=== PATIENT | male | born 1945 | race Caucasian/White ===

== ENCOUNTER 2018-10-18 07:31 | Emergency (ER) | payer MEDICARE ==
[2018-10-18] MEDS ORDERED: IPRATROPIUM/ALBUTEROL 0.5-2.5 MG/3 ML AMPUL NEB ONE (09:42)
[2018-10-18 09:57] LABS: APPEARANCE,URINE SLIGHTLY-CLOUDY; BILIRUBIN,URINE NEGATIVE (NEGATIVE); COLOR,URINE YELLOW; GLUCOSE, URINE NEGATIVE (NEGATIVE); KETONES,URINE NEGATIVE (NEGATIVE); LEUKOCYTE ESTERASE,URINE NEGATIVE (NEGATIVE); NITRITE,URINE NEGATIVE (NEGATIVE); PROTEIN,URINE NEGATIVE (NEGATIVE); URINE SPECIFIC GRAVITY 1.015
--- NOTE | 2018-10-18 10:15 | ER Document Report ---
ED General - General Chief Complaint: Abdominal Pain Stated Complaint: ABDOMEN SWELLING Time Seen by Provider: 10/18/18 09:06 Notes: Patient is a 73-year-old male that presents to the emergency department for chief complaint of right-sided abdominal pain and cough. Patient reports he is been having cough for the past week, he is gone to urgent care, and was prescribed Tessalon Perles, doxycycline, prednisone, and Tamiflu, he has taken most these medications are almost completed. He had associated runny nose, but yesterday he started he was coughing rather hard, and then felt a strain in his right side of his abdomen, and has been having an aching sensation there since then, he currently rates it as a 3 out of 10. He denies any numbness, tingling or weakness, denies any urinary complaints such as dysuria or hematuria. Denies any fevers, chills, night sweats. He states he does smoke, but denies history of diagnosis of COPD. Currently does not have a primary care. Past Medical History: Hypertension, COPD Past Surgical History: Denies recent or pertinent surgical history Social History: Admits to smoking cigarettes, denies alcohol or drug use. Family History: Reviewed and noncontributory for presenting illness Allergies: Reviewed, see documented allergy list. REVIEW OF SYSTEMS: Other than noted above, the 12 point review of systems was reviewed with the patient and were negative, all pertinent findings are included in the HPI. PHYSICAL EXAMINATION: Vital signs reviewed, nursing noted reviewed. GENERAL: Elderly male, no acute distress. HEAD: Atraumatic, normocephalic. EYES: Eyes appear normal, extraocular movements intact, sclera anicteric, conjunctiva are normal. ENT: nares patent, oropharynx clear without exudates. Moist mucous membranes. NECK: Normal range of motion, supple without lymphadenopathy LUNGS: Bilateral expiratory wheezing noted throughout all lung arango. No acute respiratory distress however. HEART: Regular rate and rhythm without murmurs ABDOMEN: Soft, there is mild tenderness to palpation over the right flank, but not CVA tenderness, no palpable hernia with Valsalva or coughing, normoactive bowel sounds. No rebound, guarding, or rigidity. No masses appreciated. EXTREMITIES: Nontender, good range of motion, no pitting or edema. NEUROLOGICAL: No focal neurological deficits. Moves all extremities spontaneously Motor and sensory grossly intact on exam. PSYCH: Normal mood, normal affect. SKIN: Warm, Dry, normal turgor, no rashes or lesions noted on exposed skin TRAVEL OUTSIDE OF THE [place] IN LAST 30 DAYS: No - Related Data Allergies/Adverse Reactions: lisinopril Allergy (Verified 10/18/18 07:36) Past Medical History - Social History Smoking Status: Current Every Day Smoker Chew tobacco use (# tins/day): No Frequency of alcohol use: weekly Drug Abuse: None Family History: Reviewed & Not Pertinent Patient has suicidal ideation: No Patient has homicidal ideation: No - Past Medical History Cardiac Medical History: Reports: Hx Hypertension Denies: Hx Coronary Artery Disease Neurological Medical History: Denies: Hx Cerebrovascular Accident Endocrine Medical History: Denies: Hx Diabetes Mellitus Type 1, Hx Diabetes Mellitus Type 2 Renal/ Medical History: Denies: Hx Peritoneal Dialysis GI Medical History: Reports: Hx Ulcer - Had a bleeding ulcer many years ago but no recent ulcer symptoms - Immunizations Hx Diphtheria, Pertussis, Tetanus Vaccination: Yes Physical Exam - Vital signs Vitals: Temp Pulse Resp BP Pulse Ox 98.0 F 70 18 180/84 H 95 10/18/18 07:42 10/18/18 07:42 10/18/18 07:42 10/18/18 07:42 10/18/18 07:42 Course - Re-evaluation Re-evalutation: Patient seen and examined vital signs reviewed. Patient was evaluated and treated as appropriate for the patient's presenting symptoms and complaint, with consideration of any critical or life threatening conditions that may be associated with their obtained history and exam as noted above. Patient was treated with DuoNeb breathing treatments The patient was re-evaluated and was improved, still had a wheeze, but was in no respiratory distress, pulse ox was within normal limits Evaluation was most consistent with acute exacerbation of COPD, cough, abdominal wall pain, will prescribe the patient an antitussive medication, to help relieve the cough, that is worsening the patient's right-sided pain, he is already prescribed steroid, advised to finish this, he is also advised to follow-up with the primary care, he is given 3 different primary care numbers to follow-up with. Urine testing was negative. Plan of care was discussed with the patient at this point, after careful consideration I feel that that patient can be discharged from the emergency department, the patient was educated treatments and reasons to return to the emergency department based on their presumed diagnosis as noted above, they were advised to followup with a primary care physician in 2-3 days. Patient was agreeable to plan of care. *Note is created using voice recognition software and may contain spelling, syntax or grammatical errors. Laboratory 10/18/18 09:15 Urine Color YELLOW Urine Appearance SLIGHTLY-CLOUDY Urine pH 8.0 Ur Specific [place] 1.015 Urine Protein NEGATIVE Urine Glucose (UA) NEGATIVE Urine Ketones NEGATIVE Urine Blood NEGATIVE Urine Nitrite NEGATIVE Urine Bilirubin NEGATIVE Urine Urobilinogen 4.0 H Ur Leukocyte Esterase NEGATIVE Urine WBC (Auto) 1 Urine Bacteria (Auto) TRACE Squamous Epi Cells Auto 2 Urine Mucus (Auto) RARE Urine Ascorbic Acid NEGATIVE - Vital Signs Vital signs: Temp Pulse Resp BP Pulse Ox 98.0 F 70 18 180/84 H 95 10/18/18 07:42 10/18/18 07:42 10/18/18 07:42 10/18/18 07:42 10/18/18 07:42 - Laboratory Laboratory results interpreted by me: 10/18/18 09:15 Urine Urobilinogen 4.0 H Discharge - Discharge Clinical Impression: Right lateral abdominal pain, Bronchospasm Condition: Stable Disposition: HOME, SELF-CARE Instructions: Cough Suppressant & Expectorant Medications, Bronchospasm ([facility]) Additional Instructions: Please take all medications as prescribed, I think you can discontinue taking the Tamiflu that was previously prescribed for flu, and also discontinue taking the Tessalon Perles, complete the course of steroids that have been prescribed, and please follow-up with primary care physician as you may need inhaled steroids to help with your wheezing, and you should be seen to be diagnosed formally with emphysema if it is present. Finish the course of doxycycline the antibiotic that you are prescribed as well, I will advise you to use the inhaler that was prescribed to you, 2 puffs 4 times daily for the next 5 days, then every 4 hours as needed after that. Prescriptions: Hydrocodone Bit/Homatrop Me-Br [Hydrocodone-Homatropine Syrup] 5 ml PO Q6H PRN #100 ml PRN Reason: Cough Referrals: [facility] [Provider Group] - Follow up in 3-5 days [facility] [Provider Group] - Follow up in 3-5 days ISREAL STROUD MD [COMMUNITY BASED STAFF] - Follow up in 3-5 days
[2018-10-18 10:48] VITALS: BP 188/97
== END 2018-10-18 10:51 | disposition home or self-care (01) ==
LOC: EDBD → ER 07:31
DX: J98.01 Acute bronchospasm (principal); I10 Essential (primary) hypertension; R10.9 Unspecified abdominal pain; R19.00 Intra-abdominal and pelvic swelling, mass and lump, unspecified site; R05 Cough; Z79.899 Other long term (current) drug therapy; R09.89 Other specified symptoms and signs involving the circulatory and respiratory systems; J44.9 Chronic obstructive pulmonary disease, unspecified; F17.210 Nicotine dependence, cigarettes, uncomplicated
CPT/HCPCS: 94640; 99284; 81001; A9270; J7620

== ENCOUNTER 2018-12-01 07:29 | Observation (INO) | payer MEDICARE ==
[2018-12-01] MEDS ORDERED: IPRATROPIUM/ALBUTEROL 0.5-2.5 MG/3 ML AMPUL NEB ONE (07:44)
--- NOTE | 2018-12-01 07:46 | ER Document Report ---
ED Medical Screen (RME) - General Stated Complaint: CHEST PAIN Time Seen by Provider: 12/01/18 07:37 Notes: Patient is a 73-year-old male who presents to the emergency department with a chief complaint of chest pain. He states that pain is on the left side of his chest. He states that it does not radiate. Describes his pain as a stabbing pain. His pain started between 4 and 5 AM this morning. He was brought in by ambulance and the ambulance gave him albuterol for his wheezing, one sublingual nitroglycerin, aspirin 324 mg, and did a twelve-lead EKG. States he does have some shortness of breath. Exam: Expiratory wheezes noted throughout all lung arango I have greeted and performed a rapid initial assessment of this patient. A comprehensive ED assessment and evaluation of the patient, analysis of test results and completion of medical decision making process will be conducted by an additional ED providers. TRAVEL OUTSIDE OF THE [place] IN LAST 30 DAYS: No - Related Data Allergies/Adverse Reactions: lisinopril Allergy (Verified 10/18/18 07:36) Past Medical History - Past Medical History Cardiac Medical History: Reports: Hx Hypertension Denies: Hx Coronary Artery Disease Neurological Medical History: Denies: Hx Cerebrovascular Accident Endocrine Medical History: Denies: Hx Diabetes Mellitus Type 1, Hx Diabetes Mellitus Type 2 Renal/ Medical History: Denies: Hx Peritoneal Dialysis GI Medical History: Reports: Hx Ulcer - Had a bleeding ulcer many years ago but no recent ulcer symptoms - Immunizations Hx Diphtheria, Pertussis, Tetanus Vaccination: Yes
[2018-12-01 07:51] LABS: ABSOLUTE EOSINOPHILS # (AUTO) 0.1 10^3/uL (0.0-0.6); ABSOLUTE MONOCYTES (AUTO) 0.4 10^3/uL (0.1-1.4); ABSOLUTE NEUT (AUTO) 0.8 10^3/uL (1.7-8.2); BASOPHILS % (AUTO) 0.8 % (0-2); EOSINOPHILS % (AUTO) 2.5 % (0-6); HEMATOCRIT 40.5 % (37.9-51.0); HEMOGLOBIN 13.6 g/dL (13.5-17.0); LYMPHOCYTES % (AUTO) 60.6 % (13-45); MEAN CORPUSCULAR HEMOGLOBIN 33.6 pg (27.0-33.4); MEAN CORPUSCULAR HGB CONC 33.5 g/dL (32.0-36.0); MEAN CORPUSCULAR VOLUME 100 fl (80-97); MONOCYTES % (AUTO) 11.7 % (3-13); PLATELET COUNT 213 10^3/uL (150-450); RED BLOOD COUNT 4.04 10^6/uL (4.35-5.55); RED CELL DISTRIBUTION WIDTH 14.1 % (11.5-14.0); SEGMENTED NEUTROPHILS % (AUTO) 24.4 % (42-78); TOTAL CELLS COUNTED % (AUTO) 100 %; WHITE BLOOD COUNT 3.2 10^3/uL (4.0-10.5)
[2018-12-01 08:09] LABS: ALANINE AMINOTRANSFERASE 19 U/L (21-72); ALBUMIN 3.9 g/dL (3.5-5.0); ALKALINE PHOSPHATASE 47 U/L (38-126); ANION GAP 11 (5-19); ASPARTATE AMINO TRANSFERASE 31 U/L (17-59); BILIRUBIN,DIRECT 0.2 mg/dL (0.0-0.4); BILIRUBIN,TOTAL 1.3 mg/dL (0.2-1.3); BLOOD UREA NITROGEN 10 mg/dL (7-20); CALCIUM 9.1 mg/dL (8.4-10.2); CARBON DIOXIDE 26 mmol/L (22-30); CHLORIDE 105 mmol/L (98-107); CREATINE KINASE 103 U/L (55-170); GLUCOSE 90 mg/dL (75-110); POTASSIUM 4.3 mmol/L (3.6-5.0); SODIUM 142.3 mmol/L (137-145); TOTAL PROTEIN 7.1 g/dL (6.3-8.2)
[2018-12-01 08:21] LABS: CREATINE KINASE MB 1.43 ng/mL (<4.55); TROPONIN I < 0.012 ng/mL
--- NOTE | 2018-12-01 08:26 | RADIOLOGY REPORT (SQ) ---
EXAM DESCRIPTION: CHEST SINGLE VIEW COMPLETED DATE/TIME: 12/01/2018 8:08 am REASON FOR STUDY: cp COMPARISON: 12/26/2014. EXAM PARAMETERS: NUMBER OF VIEWS: One view. TECHNIQUE: Single frontal radiographic view of the chest acquired. RADIATION DOSE: NA LIMITATIONS: None. FINDINGS: LUNGS AND PLEURA: Suboptimal inspiration. No opacities, masses or pneumothorax. No pleura l effusion. MEDIASTINUM AND HILAR STRUCTURES: No masses. Contour normal. HEART AND VASCULAR STRUCTURES: Heart normal in size. Normal vasculature. BONES: No acute findings. HARDWARE: None in the chest. OTHER: No other significant finding. IMPRESSION: NO ACUTE RADIOGRAPHIC FINDING IN THE CHEST. TECHNICAL DOCUMENTATION: JOB ID: [id number] [employer]- All Rights Reserved Reading location - IP/workstation name: [email or web address]
--- NOTE | 2018-12-01 08:44 | EKG REPORT ---
SEVERITY:- NORMAL ECG - SINUS RHYTHM : Confirmed by: Antonio Camara MD 01-Dec-2018 08:39:05
[2018-12-01] MEDS ORDERED: AMLODIPINE BESYLATE 5 MG TABLET PO SCH (11:30)
[2018-12-01] MEDS ORDERED: ALPRAZOLAM 0.25 MG TABLET PO PRN (11:36)
[2018-12-01] MEDS ORDERED: ACETAMINOPHEN 325 MG TABLET PO PRN (11:37)
[2018-12-01] MEDS ORDERED: IBUPROFEN 800 MG TABLET PO PRN (11:37)
--- NOTE | 2018-12-01 11:50 | PDOC H&P ---
History of Present Illness Patient complains of: CHEST PAIN History of Present Illness: CUBA LAO is a 73 year old male with a PMH of HTN (not medicated) and 55 pack year smoking history. Patient states he woke up this morning with nonradiating left-sided chest pain. He states he has been experiencing intermittent, nonradiating left-sided chest pain for approximately 1 month. He states it is not affiliated with exertion or eating. Can happen anytime of the day. The patient states he woke up with the worst amount of pain/pressure he has had in the last month, which is what prompted him to come to the emergency department. Patient was mildly hypertensive upon arrival to the emergency department, BP148/ 92. All other vital signs are WNL. EKG shows NSR, no evidence of infarction or ischemia. CXR relatively benign, no cardiopulmonary pathology. Laboratory studies revealed leukopenia (WBC 3.2), all other laboratory studies relatively normal, including chemistry and cardiac enzymes. Upon exam, the patient is resting comfortably in bed on room air. He endorses left-sided chest pressure, nonradiating. He did not shortness of breath, dizziness, back pain, nausea or vomiting. Lungs are clear to auscultation. S1-S2. There is no evidence of peripheral edema. Plan to admit to hospitalist service for chest pain. Past Medical History Cardiac Medical History: Reports: Hypertension Denies: Coronary Artery Disease Endocrine Medical History: Denies: Diabetes Mellitus Type 1, Diabetes Mellitus Type 2 Past Surgical History Past Surgical History: Reports: None Social History Information Source: Patient Lives with: Family Smoking Status: Current Every Day Smoker Number of Years Smokin Frequency of Alcohol Use: Rare Hx Recreational Drug Use: No Drugs: None Hx Prescription Drug Abuse: No - Advance Directive Resuscitation Status: Full Code Family History Family History: Reviewed & Not Pertinent Parental Family History Reviewed: Yes Children Family History Reviewed: Yes Sibling(s) Family History Reviewed.: Yes Medication/Allergy Allergies/Adverse Reactions: lisinopril Allergy (Verified 10/18/18 07:36) Review of Systems Constitutional: PRESENT: headache(s) - INTERMITTENT Eyes: PRESENT: visual disturbances - HAS NOT HAD VISION CHECKED IN "A WHILE" DOES NOT WEAR CORRECTIVE EYEWEAR Cardiovascular: PRESENT: chest pain. ABSENT: dyspnea on exertion, edema, orthropnea Gastrointestinal: ABSENT: abdominal pain, bloating Genitourinary: ABSENT: dysuria Musculoskeletal: ABSENT: deformity, muscle weakness Integumentary: ABSENT: diaphoresis Neurological: ABSENT: weakness Psychiatric: ABSENT: anxiety, depression Endocrine: ABSENT: cold intolerance, heat intolerance Physical Exam Vital Signs: Temp Pulse Resp BP Pulse Ox 97.7 F 18 159/94 H 88 L 12/01/18 08:05 12/01/18 10:00 12/01/18 10:00 12/01/18 10:00 Intake & Output 11/30/18 12/01/18 12/02/18 06:59 06:59 06:59 Weight 75.5 kg General appearance: PRESENT: no acute distress, well-developed, well-nourished Head exam: PRESENT: atraumatic, normocephalic Eye exam: PRESENT: conjunctiva pink, EOMI, PERRLA. ABSENT: scleral icterus Ear exam: PRESENT: normal external ear exam Mouth exam: PRESENT: moist, tongue midline Neck exam: ABSENT: carotid bruit, JVD, lymphadenopathy, thyromegaly Respiratory exam: PRESENT: clear to auscultation scottie, symmetrical, unlabored. ABSENT: rales, rhonchi, wheezes Cardiovascular exam: PRESENT: RRR. ABSENT: diastolic murmur, rubs, systolic murmur Pulses: PRESENT: normal radial pulses, normal dorsalis pedis pul Vascular exam: PRESENT: normal capillary refill GI/Abdominal exam: PRESENT: normal bowel sounds, soft. ABSENT: distended, guarding, mass, organolmegaly, rebound, tenderness Rectal exam: PRESENT: deferred Extremities exam: PRESENT: full ROM. ABSENT: calf tenderness, clubbing, pedal edema Neurological exam: PRESENT: alert, awake, oriented to person, oriented to place, oriented to time, oriented to situation Psychiatric exam: PRESENT: appropriate affect, normal mood Skin exam: PRESENT: dry, intact, warm. ABSENT: cyanosis, rash Results Laboratory Results: 12/01/18 07:40 12/01/18 07:40 12/01/18 12/01/18 07:40 07:40 WBC 3.2 L RBC 4.04 L Hgb 13.6 Hct 40.5 MCV 100 H MCH 33.6 H MCHC 33.5 RDW 14.1 H Plt Count 213 Seg Neutrophils % 24.4 L Lymphocytes % 60.6 H Monocytes % 11.7 Eosinophils % 2.5 Basophils % 0.8 Absolute Neutrophils 0.8 L Absolute Lymphocytes 2.0 Absolute Monocytes 0.4 Absolute Eosinophils 0.1 Absolute Basophils 0.0 Sodium 142.3 Potassium 4.3 Chloride 105 Carbon Dioxide 26 Anion Gap 11 BUN 10 Creatinine 0.87 Est GFR ( Amer) > 60 Est GFR (Non-Af Amer) > 60 Glucose 90 Calcium 9.1 Total Bilirubin 1.3 AST 31 ALT 19 L Alkaline Phosphatase 47 Total Protein 7.1 Albumin 3.9 12/01/18 12/01/18 07:40 07:40 Creatine Kinase 103 CK-MB (CK-2) 1.43 Troponin I < 0.012 Impressions: Chest X-Ray 12/01/18 07:30 IMPRESSION: NO ACUTE RADIOGRAPHIC FINDING IN THE CHEST. Status: Imported from PACS Assessment and Plan - Diagnosis (1) Chest pain Qualifiers: Chest pain type: unspecified Qualified Code(s): R07.9 - Chest pain, unspecified Is this a current diagnosis for this admission?: Yes Plan: Intermittent chest pain, not associated with activity and not relieved by rest Unclear etiology at this time EKG shows NSR no infarction or ischemia CXR benign Cardiac enzymes negative, trend q6h x 3 Initiate amlodipine for HTN - SBP 150s Nitro SL q5min x 3 for chest pain scale -5 Treat atypical causes of chest pain: PRN Tylenol and Motrin for muscular pain, PRN Xanax for anxiety, scheduled Pepcid for acid reflux (2) Tobacco abuse Is this a current diagnosis for this admission?: Yes Plan: 55 pack year smoking history will offer nicotine patch - Time Time Spent with patient: 15-24 minutes Medications reviewed and adjusted accordingly: Yes Anticipated discharge: Home Within: within 24 hours - Inpatient Certification Based on my medical assessment, after consideration of the patient's comorbidities, presenting symptoms, or acuity I expect that the services needed warrant INPATIENT care.: Yes I certify that my determination is in accordance with my understanding of Medicare's requirements for reasonable and necessary INPATIENT services [42 CFR 412.3e].: Yes Medical Necessity: Need For Continuous Telemetry Monitoring, Risk of Complicat ion if Not Cared For in Hospital
--- NOTE | 2018-12-01 12:02 | ER Document Report ---
ED Cardiac - General Chief Complaint: Chest Pain Stated Complaint: CHEST PAIN Time Seen by Provider: 12/01/18 07:37 Mode of Arrival: Ambulatory Information source: Patient Notes: Patient is a 73-year-old male presenting to the emergency department with chief complaint of chest pain. Patient reports he has been having intermittent left- sided chest pain for the last 30 days. He states this morning he woke up with the worst pain he has ever felt. He describes it as a squeezing type of pain. It is nonradiating and he did not have any nausea or vomiting. He does report shortness of breath with this. Patient does have a history of hypertension for which she is not taking medications and he also has a history of COPD. Patient reports he has been's 1 pack a day smoker for the last 65 years. Patient states that he does not have a primary care provider and does not take any prescription medications. He does state that he was seen here in this department 3 weeks ago for a cold. Patient currently denies any chest pain. TRAVEL OUTSIDE OF THE [place] IN LAST 30 DAYS: No - Related Data Allergies/Adverse Reactions: lisinopril Allergy (Verified 10/18/18 07:36) Past Medical History - General Information source: Patient - Social History Smoking Status: Current Every Day Smoker Chew tobacco use (# tins/day): No Frequency of alcohol use: None Drug Abuse: None Lives with: Family Family History: Reviewed & Not Pertinent Patient has suicidal ideation: No Patient has homicidal ideation: No - Past Medical History Cardiac Medical History: Reports: Hx Hypertension Denies: Hx Coronary Artery Disease Neurological Medical History: Denies: Hx Cerebrovascular Accident Endocrine Medical History: Denies: Hx Diabetes Mellitus Type 1, Hx Diabetes Tita itus Type 2 Renal/ Medical History: Denies: Hx Peritoneal Dialysis GI Medical History: Reports: Hx Ulcer - Had a bleeding ulcer many years ago but no recent ulcer symptoms Past Surgical History: Reports: None - Immunizations Hx Diphtheria, Pertussis, Tetanus Vaccination: Yes Review of Systems - Review of Systems Constitutional: No symptoms reported EENT: No symptoms reported Cardiovascular: Chest pain. denies: Palpitations, Heart racing Respiratory: Short of breath Gastrointestinal: No symptoms reported. denies: Nausea, Vomiting Genitourinary: No symptoms reported Male Genitourinary: No symptoms reported Musculoskeletal: No symptoms reported Skin: No symptoms reported Hematologic/Lymphatic: No symptoms reported Neurological/Psychological: No symptoms reported Physical Exam - Vital signs Vitals: BP Pulse Ox 148/92 H 95 12/01/18 07:32 12/01/18 07:32 - Notes Notes: PHYSICAL EXAMINATION: GENERAL: Well-appearing, well-nourished and in no acute distress. HEAD: Atraumatic, normocephalic. EYES: Pupils equal round and reactive to light, extraocular movements intact, sclera anicteric, conjunctiva are normal. ENT: Nares patent, oropharynx clear without exudates. Moist mucous membranes. NECK: Normal range of motion, supple without lymphadenopathy LUNGS: Breath sounds clear to auscultation bilaterally and equal. No wheezes rales or rhonchi. HEART: Regular rate and rhythm without murmurs ABDOMEN: Soft, nontender, nondistended abdomen. No guarding, no rebound. No masses appreciated. Musculoskeletal: Normal range of motion, no pitting or edema. No cyanosis. Reproducible chest pain to the left chest wall with palpation. NEUROLOGICAL: Cranial nerves grossly intact. Normal speech, normal gait. Normal sensory, motor exams PSYCH: Normal mood, normal affect. SKIN: Warm, Dry, normal turgor, no rashes or lesions noted. Course - Re-evaluation Re-evalutation: EKG shows a sinus rhythm, rate of 84, QTc 464, normal axis and no ST segment elevations or depressions, this EKG was reviewed by me. Chest x-ray is negative. CBC, CMP and initial troponin are negative. Due to patient's history is events surrounding his chest pain will consult hospitalist for admission. Patient and family are agreeable to this. - Vital Signs Vital signs: Temp Pulse Resp BP Pulse Ox 97.7 F 18 159/94 H 88 L 12/01/18 08:05 12/01/18 10:00 12/01/18 10:00 12/01/18 10:00 - Laboratory Result Diagrams: 12/01/18 07:40 12/01/18 07:40 Laboratory results interpreted by me: 12/01/18 12/01/18 07:40 07:40 WBC 3.2 L RBC 4.04 L MCV 100 H MCH 33.6 H RDW 14.1 H Seg Neutrophils % 24.4 L Lymphocytes % 60.6 H Absolute Neutrophils 0.8 L ALT 19 L Discharge - Discharge Clinical Impression: Chest pain Qualifiers: Chest pain type: unspecified Qualified Code(s): R07.9 - Chest pain, unspecified Condition: Stable Disposition: ADMITTED INPATIENT Admitting Provider: Fox (Hospitalist) Unit Admitted: Telemetry
[2018-12-01 12:07] LABS: CREATINE KINASE MB 1.43 ng/mL (<4.55); TROPONIN I < 0.012 ng/mL
[2018-12-01] MEDS: FAMOTIDINE 20 MG TABLET PO SCH (12:10)
[2018-12-01] MEDS ORDERED: METOPROLOL TARTRATE PF/INJ 5 MG/5 ML SDV IV PRN (13:53)
[2018-12-01] MEDS ORDERED: HYDRALAZINE HCL INJ/PF 20 MG/1 ML SDV IV PRN (13:53)
[2018-12-01] MEDS ORDERED: AMLODIPINE BESYLATE 5 MG TABLET PO ONE (13:57)
--- NOTE | 2018-12-01 21:59 | EKG REPORT ---
SEVERITY:- NORMAL ECG - SINUS RHYTHM : Confirmed by: Antonio Camara MD 01-Dec-2018 21:58:53
[2018-12-02 05:37] LABS: HEMATOCRIT 38.6 % (37.9-51.0); HEMOGLOBIN 12.9 g/dL (13.5-17.0); MEAN CORPUSCULAR HEMOGLOBIN 33.4 pg (27.0-33.4); MEAN CORPUSCULAR HGB CONC 33.5 g/dL (32.0-36.0); MEAN CORPUSCULAR VOLUME 100 fl (80-97); PLATELET COUNT 166 10^3/uL (150-450); RED BLOOD COUNT 3.87 10^6/uL (4.35-5.55)
[2018-12-02 05:59] LABS: ALANINE AMINOTRANSFERASE 16 U/L (21-72); ALBUMIN 3.5 g/dL (3.5-5.0); ALKALINE PHOSPHATASE 53 U/L (38-126); ANION GAP 8 (5-19); ASPARTATE AMINO TRANSFERASE 26 U/L (17-59); BILIRUBIN,DIRECT 0.3 mg/dL (0.0-0.4); BILIRUBIN,TOTAL 1.3 mg/dL (0.2-1.3); BLOOD UREA NITROGEN 10 mg/dL (7-20); CALCIUM 9.1 mg/dL (8.4-10.2); CARBON DIOXIDE 28 mmol/L (22-30); CHLORIDE 104 mmol/L (98-107); GLUCOSE 88 mg/dL (75-110); PHOSPHORUS 3.1 mg/dL (2.5-4.5); POTASSIUM 3.7 mmol/L (3.6-5.0); SODIUM 140.1 mmol/L (137-145); TOTAL PROTEIN 6.4 g/dL (6.3-8.2)
[2018-12-02] MEDS ORDERED: AMLODIPINE BESYLATE 5 MG TABLET PO SCH (10:00)
[2018-12-02] MEDS ORDERED: ASPIRIN 81 MG TABLET, ENT COATED PO SCH (10:00)
[2018-12-02] MEDS ORDERED: NICOTINE 21 MG/24 HR PATCH.TD24 TD SCH (10:00)
[2018-12-02] MEDS: FAMOTIDINE 20 MG TABLET PO SCH (10:17)
[2018-12-02] MEDS ORDERED: LOSARTAN POTASSIUM 25 MG TABLET PO SCH (13:30)
[2018-12-02] MEDS: NITROGLYCERIN 0.4 MG/TAB 25 TAB/BOTTLE SL PRN ×2 (13:32→13:43)
--- NOTE | 2018-12-02 15:38 | RADIOLOGY REPORT (SQ) ---
EXAM DESCRIPTION: CT CHEST WITHOUT COMPLETED DATE/TIME: 12/02/2018 3:23 pm REASON FOR STUDY: L CHEST WALL PAIN R07.9 CHEST PAIN, UNSPECIFIED COMPARISON: None. TECHNIQUE: CT scan performed of the chest without intravenous contrast. Images reviewed with lung, soft tissue and bone windows. Reconstructed coronal and sagittal MPR images reviewed. All images st ored on PACS. All CT scanners at this facility use dose modulation, iterative reconstruction, and/or weight based d osing when appropriate to reduce radiation dose to as low as reasonably achievable (ALARA). [facility]: Dose Right [facility]: CareDose [facility]: Dose Right [facility]: Teradose 4D [facility]: [employer] RADIATION DOSE: CT Rad equipment meets quality standard of care and radiation dose reduction techniq ues were employed. CTDIvol: 7.4 mGy. DLP: 263 mGy-cm. mGy. LIMITATIONS: No technical limitations. FINDINGS: LUNGS AND PLEURA: Chronic interstitial scarring. No masses, infiltrates, or pneumothorax. No pleural effusions or pleural calcifications. HILAR AND MEDIASTINAL STRUCTURES: No identified masses or abnormal nodes. Calcified lymph nodes. No obvious aneurysm. HEART AND VASCULAR STRUCTURES: No aneurysm. No pericardial effusion. UPPER ABDOMEN: No significant findings. Punctate calcified granulomas in the spleen. Limited exam. THYROID AND OTHER SOFT TISSUES: No masses. No adenopathy. BONES: No significant finding. HARDWARE: None in the chest. OTHER: No other significant findings. IMPRESSION: CHRONIC INTERSTITIAL SCARRING. OTHERWISE NO ACUTE OR SIGNIFICANT FINDING ON NON-CONTRAS GINI CHEST CT. TECHNICAL DOCUMENTATION: JOB ID: [id number] Quality ID # [id number]: Final reports with documentation of one or more dose reduction techniques (e.g., Au tomated exposure control, adjustment of the mA and/or kV according to patient size, use of iterative reconstruction technique) 2010 [employer]- All Rights Reserved Reading location - IP/workstation name: [email or web address]
[2018-12-02 18:22] VITALS: BP 165/88
[2018-12-02] MEDS ORDERED: DILTIAZEM HCL 120 MG CAP.SR.24H PO SCH (22:00)
[2018-12-03] MEDS ORDERED: ISOSORBIDE MONONITRATE 30 MG TAB.ER.24H PO SCH (10:00)
--- NOTE | 2018-12-04 11:04 | PDOC DISCHARGE SUMMARY ---
General - Admit/Disc Date/PCP Admission Date/Primary Care Provider: 12/01/18 11:46 Discharge Date: 12/02/18 - Discharge Diagnosis (1) Chest pain Is this a current diagnosis for this admission?: Yes (2) Tobacco abuse Is this a current diagnosis for this admission?: Yes - Additional Information Resuscitation Status: Full Code Discharge Activity: Activity As Tolerated Prescriptions: Amlodipine Besylate [Norvasc 5 mg Tablet] 10 mg PO DAILY #60 tablet Diltiazem HCl [Cardizem Cd 120 mg Capsule] 120 mg PO QHS #30 cap.sr.24h Isosorbide Mononitrate [Imdur 30 mg Tablet.er] 30 mg PO DAILY #30 tab.er.24h Losartan Potassium [Cozaar 25 mg Tablet] 25 mg PO DAILY #30 tablet Nitroglycerin [Nitrostat 0.4 mg (1/150 Gr) Tabs 25/Bottle] 1 tab SL Q5MP PRN #1 bottle PRN Reason: Home Medications: Amlodipine Besylate [Norvasc 5 mg Tablet] 10 mg PO DAILY #60 tablet 12/02/18 Diltiazem HCl [Cardizem Cd 120 mg Capsule] 120 mg PO QHS #30 cap.sr.24h 12/02/18 Isosorbide Mononitrate [Imdur 30 mg Tablet.er] 30 mg PO DAILY #30 tab.er.24h 12/02/18 Losartan Potassium [Cozaar 25 mg Tablet] 25 mg PO DAILY #30 tablet 12/02/18 Nitroglycerin [Nitrostat 0.4 mg (1/150 Gr) Tabs 25/Bottle] 1 tab SL Q5MP PRN #1 bottle 12/02/18 History of Present Illness History of Present Illness: CUBA LAO is a 73 year old male with a PMH of HTN (not medicated) and 55 pack year smoking history. Patient states he woke up this morning with nonradiating left-sided chest pain. He states he has been experiencing intermittent, nonradiating left-sided chest pain for approximately 1 month. He states it is not affiliated with exertion or eating. Can happen anytime of the day. The patient states he woke up with the worst amount of pain/pressure he has had in the last month, which is what prompted him to come to the emergency department. Patient was mildly hypertensive upon arrival to the emergency department, BP148/92. All other vital signs are WNL. EKG shows NSR, no evidence of infarction or ischemia. CXR relatively benign, no cardiopulmonary pathology. Laboratory studies revealed leukopenia (WBC 3.2), all other laboratory studies relatively normal, including chemistry and cardiac enzymes. Upon exam, the patient is resting comfortably in bed on room air. He endorses left-sided chest pressure, nonradiating. He did not shortness of breath, dizziness, back pain, nausea or vomiting. Lungs are clear to auscultation. S1-S2. There is no evidence of peripheral edema. Plan to admit to hospitalist service for chest pain. Hospital Course Hospital Course: CUBA LAO is a 73 year old male with a PMH of HTN (not medicated) and 55 pack year smoking history. He presented to the hospital for L sided chest pain. EKG showed NSR. Laboratory studies were benign. CXR showed chronic obstructive lung disease pattern. His pain was treated with IV morphine by the ED staff. The patient was a long time smoker and admits he has not seen a doctor in quite some time. Due to his symptomology and lifestyle risk factors, the patient was admitted to the hospital. Serial cardiac enzymes were negative. No changes noted on follow up EKG the next morning. His BP was consistently elevated (150-160), so PO amlodipine was started. The patient endorsed recurrence of his chest pain. CT chest was preformed and it only revealed chronic interstitial scarring, no acute findings. For his chest pain, the patient was offered SL nitroglycerin tablets. He stated he was chest pain free after receiving 2 tablets. The patient's case was discussed with school boat driver, Dr. Carrington. He recommended starting the patient on IMDUR for suspected cardiac chest pain. Cardizem was added to the regimen at the suggestion of Dr. Carrington for better blood pressure control, in addition to amlodipine. The patient was discharged home with instructions to follow up with Dr. Carrington. Additionally, he was advised to stop smoking and begin taking a baby aspirin. Physical Exam Vital Signs: Temp Pulse Resp BP Pulse Ox 98.0 F 81 17 165/88 H 97 12/02/18 18:20 12/02/18 18:20 12/02/18 18:20 12/02/18 18:20 12/02/18 18:20 Intake & Output 12/03/18 12/04/18 12/05/18 06:59 06:59 06:59 Intake Total 570 Balance 570 Results Laboratory Results: 12/02/18 04:32 12/02/18 04:32 12/01/18 12/01/18 12/01/18 07:40 07:40 11:20 Creatine Kinase 103 CK-MB (CK-2) 1.43 1.43 Troponin I < 0.012 < 0.012 12/01/18 12/01/18 12/01/18 13:35 13:35 19:35 Creatine Kinase 108 100 CK-MB (CK-2) Troponin I < 0.012 12/01/18 19:35 Creatine Kinase CK-MB (CK-2) Troponin I < 0.012 Impressions: Chest X-Ray 12/01/18 07:30 IMPRESSION: NO ACUTE RADIOGRAPHIC FINDING IN THE CHEST. Chest CT 12/02/18 13:15 IMPRESSION: CHRONIC INTERSTITIAL SCARRING. OTHERWISE NO ACUTE OR SIGNIFICANT FINDING ON NON-CONTRASTED CHEST CT. Status: Imported from PACS Qualifiers - * PATIENT BEING DISCHARGED WITH ANY OF THE FOLLOWING DIAGNOSIS: No Acute Heart Failure Is this a Heart Failure Patient?: No Plan Discharge Plan: follow up with dr. carrington for monitoring of new anti-htn regimen. Time Spent: Less than 30 Minutes
== END 2018-12-02 18:43 | disposition home or self-care (01) ==
LOC: ER 07:29 → EH 11:46 → 5 14:30
PROVIDERS: ADMIT Internal Medicine; ATTEND Internal Medicine
DX: R07.9 Chest pain, unspecified (principal); I10 Essential (primary) hypertension; F17.200 Nicotine dependence, unspecified, uncomplicated; Z88.8 Allergy status to other drugs, medicaments and biological substances; Z79.899 Other long term (current) drug therapy
CPT/HCPCS: 93005 ×2; 99285; 36415 ×2; 82553; 82550; 83735; 84100; 85025; 85027; 80053 ×2; 84484; 71045; 71250; 93010; G0378 ×3; A9270 ×7; J7620

== ENCOUNTER 2020-06-18 11:25 | Emergency (ER) | payer MEDICARE ==
--- NOTE | 2020-06-18 12:04 | ER Document Report ---
ED Medical Screen (RME) - General Chief Complaint: Foot Pain Stated Complaint: RIGHT FOOT PAIN,SWELLING Time Seen by Provider: 06/18/20 11:52 TRAVEL OUTSIDE OF THE [place] IN LAST 30 DAYS: No - HPI Notes: Patient is a 76-year-old male with a history of hypertension who presents with right foot swelling and pain that began a week ago. Patient's describes most pain to his right medial ankle. He denies any injury or fall. He denies any calf pain or swelling. He has no history of DVTs or PE. - Related Data Allergies/Adverse Reactions: No Known Allergies Allergy (Unverified 06/18/20 11:48) Past Medical History - Social History Chew tobacco use (# tins/day): No Frequency of alcohol use: Social Drug Abuse: None - Past Medical History Cardiac Medical History: Reports: Hx Hypertension Denies: Hx Coronary Artery Disease Neurological Medical History: Denies: Hx Cerebrovascular Accident Endocrine Medical History: Denies: Hx Diabetes Mellitus Type 1, Hx Diabetes Mellitus Type 2 Renal/ Medical History: Denies: Hx Peritoneal Dialysis GI Medical History: Reports: Hx Ulcer - Had a bleeding ulcer many years ago but no recent ulcer symptoms - Immunizations Hx Diphtheria, Pertussis, Tetanus Vaccination: Yes Physical Exam - Vital signs Vitals: Temp Pulse Resp BP Pulse Ox 98.1 F 91 18 174/97 H 97 06/18/20 11:44 06/18/20 11:44 06/18/20 11:44 06/18/20 11:44 06/18/20 11:44 - Cardiovascular Pulses: Normal: Posterior tibial, Dorsalis pedis - Extremities Ankle: Tender, Edema Course - Re-evaluation Re-evalutation: I have greeted and performed a rapid initial assessment of this patient. A comprehensive ED assessment and evaluation of the patient, analysis of test results and completion of medical decision making process will be conducted by an additional ED providers. - Vital Signs Vital signs: Temp Pulse Resp BP Pulse Ox 98.1 F 91 18 174/97 H 97 06/18/20 11:44 06/18/20 11:44 06/18/20 11:44 06/18/20 11:44 06/18/20 11:44
[2020-06-18 12:23] LABS: ABSOLUTE EOSINOPHILS # (AUTO) 0.1 10^3/uL (0.0-0.6); ABSOLUTE MONOCYTES (AUTO) 0.4 10^3/uL (0.1-1.4); ABSOLUTE NEUT (AUTO) 0.9 10^3/uL (1.7-8.2); EOSINOPHILS % (AUTO) 4.2 % (0-6); HEMATOCRIT 41.4 % (37.9-51.0); HEMOGLOBIN 13.9 g/dL (13.5-17.0); LYMPHOCYTES % (AUTO) 41.4 % (13-45); MEAN CORPUSCULAR HEMOGLOBIN 34.6 pg (27.0-33.4); MEAN CORPUSCULAR HGB CONC 33.5 g/dL (32.0-36.0); MEAN CORPUSCULAR VOLUME 103 fl (80-97); MONOCYTES % (AUTO) 17.2 % (3-13); PLATELET COUNT 180 10^3/uL (150-450); RED BLOOD COUNT 4.01 10^6/uL (4.35-5.55); RED CELL DISTRIBUTION WIDTH 13.8 % (11.5-14.0); SEGMENTED NEUTROPHILS % (AUTO) 36.2 % (42-78); TOTAL CELLS COUNTED % (AUTO) 100 %; WHITE BLOOD COUNT 2.4 10^3/uL (4.0-10.5)
[2020-06-18 12:29] LABS: APPEARANCE,URINE CLEAR; BILIRUBIN,URINE NEGATIVE (NEGATIVE); COLOR,URINE YELLOW; GLUCOSE, URINE NEGATIVE (NEGATIVE); KETONES,URINE NEGATIVE (NEGATIVE); LEUKOCYTE ESTERASE,URINE NEGATIVE (NEGATIVE); NITRITE,URINE NEGATIVE (NEGATIVE); PROTEIN,URINE 30 mg/dL (NEGATIVE); URINE SPECIFIC GRAVITY 1.019
[2020-06-18 12:47] LABS: ALBUMIN 4.3 g/dL (3.5-5.0); ALKALINE PHOSPHATASE 59 U/L (38-126); ANION GAP 5 (5-19); ASPARTATE AMINO TRANSFERASE 40 U/L (17-59); BILIRUBIN,DIRECT 0.1 mg/dL (0.0-0.4); BILIRUBIN,TOTAL 0.7 mg/dL (0.2-1.3); BLOOD UREA NITROGEN 9 mg/dL (7-20); CALCIUM 9.4 mg/dL (8.4-10.2); CARBON DIOXIDE 31 mmol/L (22-30); CHLORIDE 103 mmol/L (98-107); GLUCOSE 94 mg/dL (75-110); POTASSIUM 4.4 mmol/L (3.6-5.0); TOTAL PROTEIN 7.8 g/dL (6.3-8.2)
--- NOTE | 2020-06-18 12:59 | RADIOLOGY REPORT (SQ) ---
EXAM DESCRIPTION: ANKLE RIGHT COMPLETE IMAGES COMPLETED DATE/TIME: 06/18/2020 12:39 pm REASON FOR STUDY: right ankle swelling COMPARISON: None. NUMBER OF VIEWS: Three views. TECHNIQUE: AP, lateral, and oblique radiographic images acquired of the right ankle. LIMITATIONS: None. FINDINGS: MINERALIZATION: Normal. BONES: No acute fracture or dislocation. No worrisome bone lesions. JOINTS: No effusions. SOFT TISSUES: Mild circumferential edema. OTHER: No other significant finding. IMPRESSION: Mild circumferential edema without underlying osseous injury. TECHNICAL DOCUMENTATION: JOB ID: [id number] 2010 [employer]- All Rights Reserved Reading location - IP/workstation name: [email or web address]
--- NOTE | 2020-06-18 13:48 | RADIOLOGY REPORT (SQ) ---
EXAM DESCRIPTION: TIBIA FIBULA RIGHT IMAGES COMPLETED DATE/TIME: 06/18/2020 1:28 pm REASON FOR STUDY: Pain mid-tibia, no trauma COMPARISON: None. NUMBER OF VIEWS: Two views. TECHNIQUE: Two radiographic images acquired of the right tibia and fibula to include the knee and an kle in at least one projection. LIMITATIONS: None. FINDINGS: MINERALIZATION: Normal. BONES: No acute fracture or dislocation. No worrisome bone lesions. SOFT TISSUES: No obvious swelling or foreign body. OTHER: No other significant finding. IMPRESSION: NEGATIVE STUDY OF THE RIGHT TIBIA AND FIBULA. NO RADIOGRAPHIC EVIDENCE OF ACUTE INJURY. TECHNICAL DOCUMENTATION: JOB ID: [id number] 2010 [employer]- All Rights Reserved Reading location - IP/workstation name: [email or web address]
[2020-06-18 13:51] LABS: C-REACTIVE PROTEIN 14.2 mg/L (<10.0); URIC ACID 10.8 mg/dL (3.5-8.5)
[2020-06-18] MEDS ORDERED: ACETAMINOPHEN 325 MG TABLET PO ONE (15:25)
[2020-06-18] MEDS ORDERED: IBUPROFEN 600 MG TABLET PO ONE (15:28)
--- NOTE | 2020-06-18 16:09 | ER Document Report ---
ED Extremity Problem, Lower - General Chief Complaint: Foot Pain Stated Complaint: RIGHT FOOT PAIN,SWELLING Time Seen by Provider: 06/18/20 11:52 Primary Care Provider: ISREAL STROUD MD [COMMUNITY BASED STAFF] - Follow up in 1 week CARLA DOUGLAS [Primary Care Provider] - Follow up as needed Mode of Arrival: Wheelchair Information source: Patient TRAVEL OUTSIDE OF THE [place] IN LAST 30 DAYS: No - HPI Notes: Progressive pain in his right ankle and right lower leg that has been progressively worsening for the past several days. Denies any trauma. Denies any history of inflammatory arthritis or gouty arthropathy. Denies any fever or chills. States the skin feels a little tight over the area but not warm or particularly painful to the touch. Has never had anything like this before. Otherwise in his usual state of health. - Related Data Allergies/Adverse Reactions: No Known Allergies Allergy (Unverified 06/18/20 11:48) Past Medical History - Social History Smoking Status: Current Every Day Smoker Chew tobacco use (# tins/day): No Frequency of alcohol use: Social Drug Abuse: None Family History: Reviewed & Not Pertinent Patient has homicidal ideation: No - Medical History Notes: Past medical history as documented in the electronic health record is reviewed. - Past Medical History Cardiac Medical History: Reports: Hx Hypertension Denies: Hx Coronary Artery Disease Neurological Medical History: Denies: Hx Cerebrovascular Accident Endocrine Medical History: Denies: Hx Diabetes Mellitus Type 1, Hx Diabetes Mellitus Type 2 Renal/ Medical History: Denies: Hx Peritoneal Dialysis GI Medical History: Reports: Hx Ulcer - Had a bleeding ulcer many years ago but no recent ulcer symptoms - Immunizations Hx Diphtheria, Pertussis, Tetanus Vaccination: Yes Review of Systems - Review of Systems Notes: Constitutional no fever or chills. Skill skeletal: Per present illness. Neurologic: Denies any numbness tingling or weakness. Physical Exam - Vital signs Vitals: Temp Pulse Resp BP Pulse Ox 98.1 F 91 18 174/97 H 97 06/18/20 11:44 06/18/20 11:44 06/18/20 11:44 06/18/20 11:44 06/18/20 11:44 - Notes Notes: General: Pleasant elderly male no acute distress. Vital signs and nursing documentation are reviewed. 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 No ulcerations. No blistering. Mild hyperpigmentation of the right lower leg from about 10 cm above the ankle down. This area is mildly tender to the touch. The ankle itself is slightly fluctuant. It hurts when he moves his foot. Distal neurovascular intact. Course - Re-evaluation Re-evalutation: 06/18/20 18:59 Patient was medicated with [id number] medications and seemed to be comfortable. His laboratory values suggested a possible gouty arthropathy with an elevated uric acid level and an elevated CRP. There did not appear to be any evidence of infection. We discussed the patient's lab and x-ray results in detail. I explained all the results to him in the differential diagnostic po ssibilities. We agreed upon plan of starting him on a Medrol Dosepak along with some hydrocodone to help with his pain for the next couple of days. I explained to him that if this was an infection that it actually could get worse on this treatment and he understands that. If he has increasing pain, increasing swelling, fever, or streaking or pain going up his leg that he needs to return to the emergency department immediately. Otherwise he should follow up with primary care in 5 to 7 days to address his underlying hyperuricemia and other ongoing medical problems. He was given contact information for a local primary care physician. - Vital Signs Vital signs: Temp Pulse Resp BP Pulse Ox 98.1 F 87 18 155/88 H 99 06/18/20 11:44 06/18/20 17:08 06/18/20 17:08 06/18/20 17:08 06/18/20 17:08 - Laboratory Result Diagrams: 06/18/20 12:10 06/18/20 12:10 Laboratory results interpreted by me: 06/18/20 06/18/20 06/18/20 12:10 12:10 12:10 WBC 2.4 L RBC 4.01 L MCV 103 H MCH 34.6 H [place] % (Auto) 17.2 H Absolute Neuts (auto) 0.9 L Seg Neutrophils % 36.2 L Carbon Dioxide 31 H Uric Acid C-Reactive Protein Urine Protein 30 H Urine Urobilinogen 4.0 H 06/18/20 12:10 WBC RBC MCV MCH [place] % (Auto) Absolute Neuts (auto) Seg Neutrophils % Carbon Dioxide Uric Acid 10.8 H C-Reactive Protein 14.2 H Urine Protein Urine Urobilinogen Discharge - Discharge Clinical Impression: Gouty arthritis of right ankle Condition: Stable Disposition: HOME, SELF-CARE Instructions: Gout ([facility]) Additional Instructions: A prescription for methylprednisolone which is a steroid to help with inflamma tion has been sent to [facility] pharmacy for you. Please pick this up and take it according to label directions. A new prescription for hydrocodone/acetaminophen has been sent to [facility] also. This is a pain pill. Please pick this up and take it according to label directions. Do not take any other Tylenol while you are taking this medication. Return to the emergency department for recheck if you are getting worse. Otherwise call the primary care doctor listed on your instructions and make an appointment for follow-up. Return if any other concerning symptoms develop. Prescriptions: Methylprednisolone [Medrol Dosepack (4 mg/Tab) 21 Tab/Dosepak] 4 mg PO ASDIR PRN #21 tab.ds.pk PRN Reason: Hydrocodone/Acetaminophen [[place] 5-325 mg Tablet] 1 tab PO Q6H PRN #10 tablet PRN Reason: Pain Referrals: MISAEL,NO [Primary Care Provider] - Follow up as needed ISREAL STROUD MD [COMMUNITY BASED STAFF] - Follow up in 1 week
[2020-06-18 17:09] VITALS: BP 155/88
== END 2020-06-18 17:10 | disposition home or self-care (01) ==
LOC: ER 11:25
DX: M10.9 Gout, unspecified (principal); F17.200 Nicotine dependence, unspecified, uncomplicated; I10 Essential (primary) hypertension; Q80.9 Congenital ichthyosis, unspecified
CPT/HCPCS: 99284; 36415; 84550; 85025; 85652; 86140; 80053; 81001; 73610; 73590; A9270 ×2

== ENCOUNTER → 2020-08-05 | Outpatient (CLI) | payer MEDICARE ==
--- NOTE | 2020-08-05 14:43 | RADIOLOGY REPORT (SQ) ---
EXAM DESCRIPTION: VENOUS BILATERAL LOWER IMAGES COMPLETED DATE/TIME: 08/05/2020 1:13 pm REASON FOR STUDY: PAIN I82.403 ACUTE EMBOLISM AND THOMBOS UNSP DEEP VEINS OF LOW EX M79.604 PAIN I N RIGHT LEG M79.605 PAIN IN LEFT LEG. Bilateral lower extremity pain and swelling. COMPARISON: None. TECHNIQUE: Dynamic and static damon scale and color images acquired of both lower extremity venous sy stems. Selected spectral images acquired with additional compression and augmentation maneuvers. Imag es stored on PACS. LIMITATIONS: None. FINDINGS: RIGHT LEG COMMON FEMORAL AND FEMORAL: Normal phasicity, compression and augmentation. No visualized echogenic m aterial on damon scale. No defects on color images. POPLITEAL: Normal compression and augmentation. No visualized echogenic material on damon scale. No de fects on color images. CALF VESSELS: Normal compression and augmentation. No visualized echogenic material on damon scale. No defects on color image. GSV AND SSV: Normal compression. No visualized echogenic material on damon scale. No defects on color images. ANY DEEP VENOUS INSUFFICIENCY: Not evaluated. ANY EVIDENCE OF POPLITEAL CYST: No. OTHER: No other significant finding. LEFT LEG COMMON FEMORAL AND FEMORAL: Normal phasicity, compression and augmentation. No visualized echogenic m aterial on damon scale. No defects on color images. POPLITEAL: Normal compression and augmentation. No visualized echogenic material on damon scale. No de fects on color images. CALF VESSELS: Normal compression and augmentation. No visualized echogenic material on damon scale. No defects on color images. GSV AND SSV: Normal compression. No visualized echogenic material on damon scale. No defects on color images. ANY DEEP VENOUS INSUFFICIENCY: Not evaluated. ANY EVIDENCE POPLITEAL CYST: No. OTHER: No other significant finding. IMPRESSION: NO EVIDENCE DVT OR SVT IN EITHER LEG. TECHNICAL DOCUMENTATION: JOB ID: [id number] 2010 [employer]- All Rights Reserved Reading location - IP/workstation name: [email or web address]
== END ==
LOC: SP 12:52
PROVIDERS: ATTEND Podiatrist Foot & Ankle Surgery
DX: M79.604 Pain in right leg (principal); M79.605 Pain in left leg
CPT/HCPCS: 93970